=== PATIENT | female | born 1990 | race Caucasian/White ===

== ENCOUNTER 2020-01-12 05:38 | Day surgery (SDC) | payer BC ==
[~2020-01-12] VITALS: Ht 170.2 cm; Wt 86.7 kg
[~2020-01-12 05:38] MED LIST: MOTRIN 600600 MG/TAB PO; PERCOCET 325 MG1 TA2 PO; PRENATAL1 TA1 PO
[2020-01-12 06:11] VITALS: BP 116/62; PULSE 75; TEMP 98.1
[2020-01-12] MEDS ORDERED: PRENATAL TABLET PO (06:16)
[2020-01-12] MEDS ORDERED: BONJESTA ER 201 EACH PO (06:16)
--- NOTE | 2020-01-12 06:18 | NUR ---
TO RM 8 AT 0546- CALL LIGHT IN [facility]ACH WILL BE CALLED FOR RIDE HOME.
[2020-01-12 07:46] VITALS: BP 99/48; PULSE 75; TEMP 97.7
--- NOTE | 2020-01-12 07:46 | NUR ---
TO RN 8 PER CART FROM OR. ALERT ORIENTED X3, TALKING WITH STAFF. DENIES PAIN OR DISCOMFORT. DENIES NAUSEA OR VOMITING.
[2020-01-12 08:00] VITALS: BP 97/60; PULSE 61
--- NOTE | 2020-01-12 08:00 | NUR ---
RECEIVED APPLE JUICE. SITTING UP AND TEXTING ON THE PHONE.
[2020-01-12 08:15] VITALS: BP 102/62; PULSE 68
--- NOTE | 2020-01-12 08:15 | NUR ---
DRANK 100% JUICE. RECEIVED 2ND CUP OF APPLE JUICE AND BLUEBERRY MUFFIN.
[2020-01-12 08:30] VITALS: BP 106/61; PULSE 60
--- NOTE | 2020-01-12 08:30 | NUR ---
ATE 100% AND TOLERATED WELL.
[2020-01-12 09:00] VITALS: BP 108/59; PULSE 66
--- NOTE | 2020-01-12 09:00 | NUR ---
AMBULATED TO BATHROOM AND TOLERATED WELL. VOIDED AND AMBULATED BACK TO . PATIENT TEXTED FOR PERSONAL DEVELOPMENT EDUCATOR.
--- NOTE | 2020-01-12 09:25 | NUR ---
DISCHARGED PER WC BY NURSING STAFF TO PRIVATE CAR IN CARE OF
--- NOTE | 2020-01-12 09:58 | NUR ---
RECEIVED DISCHARGE INSTRUCTIONS AND VERBALIZED UNDERSTANDING. DISCONTINUED IV AND INT- CATHETER INTACT
== END 2020-01-12 09:30 | disposition home or self-care (01) ==
LOC: SDCO 05:38
DX: O02.1 Missed abortion (principal)
CPT/HCPCS: J1885; J2405; J2704; J3010; J7120